=== PATIENT | male | born 1970 | race Caucasian/White ===

== ENCOUNTER → 2017-01-18 | Outpatient (CLI) | payer OTHER ==
[~2017-01-18] MED LIST: METHACHOLINE KIT (J7674) INH ONE
--- NOTE | 2017-01-18 09:33 | PFTRPT ---
Tech: Jazlyn BELTRAN RRT Age: 46 Sex: Male Race: Height: 68.75 Inches Weight: 262.00 Lbs BSA: 2.31 Diagnosis: R06.02 METHACHOLINE CHALLENGE REPORT: ORDERING PROVIDER: Dwaine Amaya MD DATE OF SERVICE:01/18/17 INTERPRETATION: The study was of excellent technical quality. Under protocol, methacholine was administered. At a dose of 10 mg (63.875 CDUs), a 24% decline in the FEV1 was noted. The PC20 of 7.10 just does meet criteria for a positive study. Flow rates did return to baseline post bronchodilator administration. IMPRESSION: Positive methacholine challenge study. MTDD
== END ==
LOC: M CARPUL 08:48
PROVIDERS: ATTEND Internal Medicine Pulmonary Disease
DX: R06.02 Shortness of breath (principal)

== ENCOUNTER → 2018-06-24 | Outpatient (CLI) | payer OTHER | LOC: M RAD 15:50 | DX: J32.4 Chronic pansinusitis (principal) | CPT/HCPCS: 70486 ==

== ENCOUNTER 2022-04-22 08:22 | Day surgery (SDC) | payer OTHER ==
[~2022-04-22] VITALS: Ht 180.3 cm; Wt 132.9 kg
[~2022-04-22 08:22] MED LIST changes: +ATOR1TAB21 PO; +FLUO40CA PO; +GLIP5TAB20 PO; +LOSA50TA28 PO; -METHACHOLINE KIT (J7674) INH ONE; +OMEP-173 PO; +OXYC1TAB23 PO
[2022-04-22] MEDS ORDERED: LR 1,000 ML IV SCH ×3 (09:25→16:00)
[2022-04-22] MEDS ORDERED: ROPIvacaine 0.5% 30ML INJECTION (J2795 PER 1MG) PN ONE (09:45)
[2022-04-22] MEDS ORDERED: LIDOCAINE 1% SDV 5ML VIAL PN ONE (09:45)
[2022-04-22] MEDS ORDERED: ONDANSETRON 4MG 2ML VIAL IV PRN ×2 (09:45→16:00)
[2022-04-22] MEDS ORDERED: oxyCODONE 5MG TAB PO PRN ×2 (09:45→17:15)
[2022-04-22] MEDS ORDERED: fentaNYL 100 MCG/2 ML INJECTION IV PRN ×2 (09:45)
[2022-04-22] MEDS ORDERED: dexameTHASONE 10MG/1ML VIAL PRES.FREE (J1100 PER 1MG) PN ONE (09:45)
[2022-04-22] MEDS: MIDAZOLAM INJ 2MG/2ML VIAL (J2250 PER 1MG) IV PRN ×2 (10:15→10:16)
[2022-04-22] MEDS ORDERED: ceFAZolin SOD 2 GM in IV 1 EA IV ONE (10:25)
[2022-04-22] MEDS ORDERED: ceFAZolin SOD 1 GM in D5W MINI-BAG PLUS 50 ML IV ONE (10:25)
[2022-04-22] MEDS ORDERED: BUPIVACAINE HCL 0.25% 30ML VIAL As Ordered ONE (12:29)
[2022-04-22] MEDS ORDERED: BACITRACIN OINTMENT 30GM TUBE ONE (12:30)
[2022-04-22] MEDS ORDERED: BUPIVACAINE HCL 0.25% 30ML VIAL ONE (12:30)
[2022-04-22] MEDS ORDERED: BACITRACIN OINTMENT 30GM TUBE As Ordered ONE (12:30)
[2022-04-22] MEDS ORDERED: ONDANSETRON 4MG 2ML VIAL As Ordered ONE (13:14)
[2022-04-22] MEDS ORDERED: MIDAZOLAM INJ 2MG/2ML VIAL (J2250 PER 1MG) As Ordered ONE (13:14)
[2022-04-22] MEDS ORDERED: fentaNYL 250 MCG/5 ML INJECTION As Ordered ONE (13:14)
[2022-04-22] MEDS ORDERED: ROCURONIUM BROMIDE 50 MG/5 ML VIAL As Ordered ONE ×2 (13:14→13:52)
[2022-04-22] MEDS ORDERED: LABETALOL 100MG/20ML VIAL As Ordered ONE (13:14)
[2022-04-22] MEDS ORDERED: propofoL 200 MG/20 ML VIAL As Ordered ONE ×2 (13:14→13:15)
[2022-04-22] MEDS ORDERED: LIDOCAINE 2% 100MG/5ML SDV (FOR ANES.) As Ordered ONE (13:14)
[2022-04-22] MEDS ORDERED: dexameTHASONE 4 MG/ML 1ML VIAL (J1100 PER 1MG) As Ordered ONE (13:14)
[2022-04-22] MEDS ORDERED: PHENYLephrine 500MCG 5ML (100MCG/ML) SYRINGE As Ordered ONE (13:20)
[2022-04-22] MEDS ORDERED: ePHEDrine SULFATE 25 MG/5 ML(5MG/ML) SYRINGE As Ordered ONE (13:21)
[2022-04-22] MEDS ORDERED: ACETAMINOPHEN 1000MG 100ML IV BTL (OFIRMEV) (J0131 PER 10MG) As Ordered ONE (14:35)
[2022-04-22] MEDS ORDERED: SUGAMMADEX SODIUM 500 MG/5 ML VIAL (BRIDION) As Ordered ONE (15:44)
[2022-04-22] MEDS ORDERED: PERC5TAB12 PO (16:20)
[2022-04-22] MEDS: fentaNYL 100 MCG/2 ML INJECTION IV PRN ×4 (16:32→16:48)
[2022-04-22] MEDS: oxyCODONE 5MG TAB PO PRN ×2 (16:32→17:03)
[2022-04-22] MEDS ORDERED: KETOROLAC 30 MG/ML 1ML VIAL As Ordered ONE (16:41)
[2022-04-22] MEDS ORDERED: KETOROLAC 30 MG/ML 1ML VIAL IV ONE (16:45)
[2022-04-22] MEDS: MORPHINE 2 MG/ML 1ML VIAL IV PRN ×5 (16:55→17:24)
[2022-04-22] MEDS ORDERED: ACETAMINOPHEN TAB 650MG DOSE (2X325MG) PO PRN (17:15)
[2022-04-22] MEDS ORDERED: MORPHINE 4 MG/ML 1ML VIAL/SYRINGE IV PRN (17:15)
[2022-04-22] MEDS ORDERED: HYDROmorphone 2 MG TAB PO PRN ×2 (17:15→17:20)
[2022-04-22] MEDS ORDERED: FUROSEMIDE 40MG/4ML VIAL (J1940) IV ONE (18:10)
[2022-04-22 18:55] VITALS: BP 168/108
[2022-04-22 19:00] LABS: HEMATOCRIT 41.1 % (42.0-52.0); HEMOGLOBIN 13.6 g/dl (13.5-17.5); MEAN CORPUSCULAR HEMOGLOBIN 26.9 pg (27.0-33.0); MEAN CORPUSCULAR HGB CONC 33.1 g/dl (32.0-36.5); MEAN CORPUSCULAR VOLUME 81.4 fl (80.0-96.0); PLATELET COUNT, AUTOMATED 309 10^3/uL (150-450); RED BLOOD COUNT 5.05 10^6/uL (4.30-6.10); WHITE BLOOD COUNT 9.9 10^3/uL (4.0-10.0)
[2022-04-22 19:25] VITALS: BP 170/90
[2022-04-22 19:37] LABS: BLOOD UREA NITROGEN 19 MG/DL (7-18); CALCIUM LEVEL 9.1 MG/DL (8.5-10.1); CARBON DIOXIDE LEVEL 25 MEQ/L (21-32); CHLORIDE LEVEL 100 MEQ/L (98-107); CREATININE FOR GFR 1.17 MG/DL (0.70-1.30); GLOMERULAR FILTRATION RATE > 60.0 (>56); GLUCOSE, FASTING 217 MG/DL (70-100); NT-PRO BNP 57 PG/ML (<125); POTASSIUM SERUM 4.1 MEQ/L (3.5-5.1); SODIUM LEVEL 135 MEQ/L (136-145)
[2022-04-22] MEDS ORDERED: LABETALOL 100MG/20ML VIAL IV ONE (19:40)
[2022-04-22] MEDS: ceFAZolin SOD 1 GM in D5W MINI-BAG PLUS 50 ML IV SCH (20:36)
[2022-04-22] MEDS ORDERED: PILL CUTTER 1 EACH XX PRN (20:40)
[2022-04-22 22:25] VITALS: BP 167/95
[2022-04-22] MEDS: KETOROLAC 30 MG/ML 1ML VIAL IV SCH (22:51)
[2022-04-22 23:58] VITALS: BP 189/98
[2022-04-23 00:09] VITALS: BP 189/98
[2022-04-23 03:25] VITALS: BP 160/70
[2022-04-23] MEDS: ceFAZolin SOD 1 GM in D5W MINI-BAG PLUS 50 ML IV SCH (05:08)
[2022-04-23] MEDS: KETOROLAC 30 MG/ML 1ML VIAL IV SCH (05:09)
[2022-04-23 05:18] LABS: HEMATOCRIT 37.3 % (42.0-52.0); HEMOGLOBIN 12.3 g/dl (13.5-17.5); MEAN CORPUSCULAR HEMOGLOBIN 26.9 pg (27.0-33.0); MEAN CORPUSCULAR VOLUME 81.6 fl (80.0-96.0); PLATELET COUNT, AUTOMATED 325 10^3/uL (150-450); RED BLOOD COUNT 4.57 10^6/uL (4.30-6.10); WHITE BLOOD COUNT 12.6 10^3/uL (4.0-10.0)
[2022-04-23 05:33] LABS: HEMOGLOBIN A1c 7.2 %
[2022-04-23 06:00] LABS: ALBUMIN 3.6 GM/DL (3.2-5.2); ALT/SGPT 59 U/L (12-78); BILIRUBIN,TOTAL 0.4 MG/DL (0.2-1.0); BLOOD UREA NITROGEN 22 MG/DL (7-18); CALCIUM LEVEL 8.9 MG/DL (8.5-10.1); CARBON DIOXIDE LEVEL 25 MEQ/L (21-32); CHLORIDE LEVEL 100 MEQ/L (98-107); CHOLESTEROL LEVEL 159 MG/DL (<200); CHOLESTEROL RISK RATIO 4.968 (<5); CREATININE FOR GFR 1.09 MG/DL (0.70-1.30); GLOMERULAR FILTRATION RATE > 60.0 (>56); GLUCOSE, FASTING 207 MG/DL (70-100); HDL CHOLESTEROL 32 MG/DL (>40); LDL CHOLESTEROL 92 MG/DL (<100); NON-HDL-C 127 MG/DL; POTASSIUM SERUM 4.1 MEQ/L (3.5-5.1); SODIUM LEVEL 134 MEQ/L (136-145); TOTAL PROTEIN 6.9 GM/DL (6.4-8.2); TRIGLYCERIDES LEVEL 174 MG/DL (<150)
[2022-04-23 08:00] VITALS: BP 137/87
[2022-04-23] MEDS ORDERED: FUROSEMIDE 40MG/4ML VIAL (J1940) IV ONE (08:00)
[2022-04-23] MEDS ORDERED: ATOR1TAB21 PO (08:25)
[2022-04-23] MEDS ORDERED: LOSA50TA28 PO (08:26)
[2022-04-23] MEDS ORDERED: GLIP5TAB20 PO (08:26)
[2022-04-23] MEDS ORDERED: OMEP-173 PO (08:26)
[2022-04-23] MEDS ORDERED: ANOR1AER PO (08:26)
[2022-04-23] MEDS ORDERED: HOME MED LIST COMPLETE! XX SCH (08:30)
[2022-04-23] MEDS ORDERED: LOSARTAN 50MG TABLET PO SCH (09:00)
[2022-04-23] MEDS ORDERED: IBUPROFEN 600MG TAB PO PRN (23:00)
== END 2022-04-23 10:05 | disposition home or self-care (01) ==
LOC: M SDC 08:22 → M PCU 18:05 → M SDC 04-23 10:05
PROVIDERS: ATTEND Orthopaedic Surgery Hand Surgery
DX: S42.401A Unspecified fracture of lower end of right humerus, initial encounter for closed fracture (principal); S53.442A Ulnar collateral ligament sprain of left elbow, initial encounter; V58.4XXA Person boarding or alighting a pick-up truck or van injured in noncollision transport accident, initial encounter; E11.9 Type 2 diabetes mellitus without complications; I10 Essential (primary) hypertension; J34.2 Deviated nasal septum; E78.00 Pure hypercholesterolemia, unspecified; K21.9 Gastro-esophageal reflux disease without esophagitis; R60.0 Localized edema; J32.4 Chronic pansinusitis; G43.919 Migraine, unspecified, intractable, without status migrainosus; H90.2 Conductive hearing loss, unspecified; G47.33 Obstructive sleep apnea (adult) (pediatric); Z91.19 Patient's noncompliance with other medical treatment and regimen; M54.50 Low back pain, unspecified; F43.10 Post-traumatic stress disorder, unspecified; J45.909 Unspecified asthma, uncomplicated; J44.9 Chronic obstructive pulmonary disease, unspecified; E66.01 Morbid (severe) obesity due to excess calories; Z68.41 Body mass index [BMI] 40.0-44.9, adult; Z87.891 Personal history of nicotine dependence; Z79.899 Other long term (current) drug therapy; Z79.51 Long term (current) use of inhaled steroids; Z88.8 Allergy status to other drugs, medicaments and biological substances
CPT/HCPCS: 20692; 24343; 24366; 24586; 36415; 71045; 76000; 80048; 80053; 80061; 83036; 83880; 85027; 85379; 93970; 96365; 96366; 96375; 96376; 97161; C1713; J0131; J0690; J1100; J1885; J2250; J2270; J2370; J2405; J3010

== ENCOUNTER → 2022-05-01 | Outpatient (CLI) | payer OTHER ==
[~2022-05-01] MED LIST changes: +ANOR1AER PO; +PERC5TAB12 PO
== END ==
LOC: M SOG 13:36
PROVIDERS: ATTEND Physician Assistant
DX: S52.121A Displaced fracture of head of right radius, initial encounter for closed fracture (principal); W18.30XA Fall on same level, unspecified, initial encounter; Y92.009 Unspecified place in unspecified non-institutional (private) residence as the place of occurrence of the external cause

== ENCOUNTER → 2022-05-11 | Outpatient (CLI) | payer OTHER | LOC: M SOG 08:16 | PROVIDERS: ATTEND Physician Assistant | DX: Z47.89 Encounter for other orthopedic aftercare (principal) ==

== ENCOUNTER → 2022-05-25 | Outpatient (CLI) | payer OTHER | LOC: M SOG 13:44 | PROVIDERS: ATTEND Orthopaedic Surgery Hand Surgery | DX: Z47.89 Encounter for other orthopedic aftercare (principal) ==

== ENCOUNTER → 2022-06-15 | Outpatient (CLI) | payer OTHER | LOC: M SOG 09:18 | PROVIDERS: ATTEND Orthopaedic Surgery Hand Surgery | DX: Z47.89 Encounter for other orthopedic aftercare (principal) ==

== ENCOUNTER → 2022-07-16 | Outpatient (CLI) | payer OTHER | LOC: M SOG 14:36 | PROVIDERS: ATTEND Orthopaedic Surgery Hand Surgery | DX: M25.621 Stiffness of right elbow, not elsewhere classified (principal) ==

== ENCOUNTER → 2022-08-20 | Outpatient (CLI) | payer OTHER | LOC: M SOG 09:47 | PROVIDERS: ATTEND Physician Assistant | DX: M25.521 Pain in right elbow (principal) ==

== ENCOUNTER → 2022-10-22 | Outpatient (CLI) | payer OTHER | LOC: M SOG 14:36 | PROVIDERS: ATTEND Physician Assistant | DX: M25.522 Pain in left elbow (principal) ==

== ENCOUNTER → 2022-11-02 | Outpatient (CLI) | payer OTHER ==
[~2022-11-02] MED LIST changes: +ASPI-527 PO; +CELE100C PO
== END ==
LOC: M LABSMTC 09:45
PROVIDERS: ATTEND Anesthesiology
DX: Z01.818 Encounter for other preprocedural examination (principal); Z11.52 Encounter for screening for COVID-19

== ENCOUNTER 2022-11-06 06:59 | Day surgery (SDC) | payer OTHER ==
[~2022-11-06] VITALS: Ht 180.3 cm; Wt 123.0 kg
[2022-11-06] MEDS ORDERED: LR 1,000 ML IV SCH (07:05)
[2022-11-06] MEDS ORDERED: METO50TA7 PO (07:28)
[2022-11-06] MEDS ORDERED: ALOG25TA PO (07:28)
[2022-11-06] MEDS ORDERED: BACITRACIN OINTMENT 30GM TUBE As Ordered ONE (08:19)
[2022-11-06] MEDS ORDERED: BUPIVACAINE HCL 0.25% 30ML VIAL As Ordered ONE (08:20)
[2022-11-06] MEDS ORDERED: MIDAZOLAM INJ 2MG/2ML VIAL As Ordered ONE (08:22)
[2022-11-06] MEDS ORDERED: fentaNYL 100 MCG/2 ML INJECTION As Ordered ONE (08:22)
[2022-11-06] MEDS ORDERED: ONDANSETRON 4MG 2ML VIAL As Ordered ONE (08:23)
[2022-11-06] MEDS ORDERED: LIDOCAINE 2% 100MG/5ML SDV (FOR ANES.) As Ordered ONE (08:23)
[2022-11-06] MEDS ORDERED: KETOROLAC 60MG 2ML VIAL As Ordered ONE (08:23)
[2022-11-06] MEDS ORDERED: propofoL 200 MG/20 ML VIAL As Ordered ONE (08:23)
[2022-11-06] MEDS ORDERED: ACETAMINOPHEN 1000MG 100ML IV BAG As Ordered ONE (08:23)
[2022-11-06] MEDS ORDERED: LIDOCAINE W/EPINEPHRINE 1% 20ML VIAL As Ordered ONE (08:25)
[2022-11-06] MEDS ORDERED: ceFAZolin 1GM VIAL As Ordered ONE (08:37)
[2022-11-06] MEDS ORDERED: ceFAZolin 2 GM/D5W 50 ML IV BAG As Ordered ONE (08:38)
[2022-11-06] MEDS ORDERED: VASOPRESSIN INJ 20UNITS/ML 1ML VIAL As Ordered ONE (08:59)
[2022-11-06] MEDS ORDERED: oxyCODONE 5MG TAB PO PRN (10:00)
[2022-11-06] MEDS ORDERED: fentaNYL 100 MCG/2 ML INJECTION IV PRN (10:00)
[2022-11-06] MEDS ORDERED: MORPHINE 2 MG/ML 1ML VIAL IV PRN (10:00)
[2022-11-06] MEDS ORDERED: ONDANSETRON 4MG 2ML VIAL IV PRN (10:00)
[2022-11-06] MEDS ORDERED: PERC5TAB12 PO (10:04)
[2022-11-06 11:28] VITALS: BP 110/64
== END 2022-11-06 11:34 | disposition home or self-care (01) ==
LOC: M SDC 06:59
PROVIDERS: ATTEND Orthopaedic Surgery Hand Surgery
DX: T84.192A Other mechanical complication of internal fixation device of bone of right forearm, initial encounter (principal); M25.521 Pain in right elbow; J45.909 Unspecified asthma, uncomplicated; Z87.891 Personal history of nicotine dependence; Z79.82 Long term (current) use of aspirin; Z79.899 Other long term (current) drug therapy; I25.10 Atherosclerotic heart disease of native coronary artery without angina pectoris; I25.2 Old myocardial infarction; I10 Essential (primary) hypertension; E11.9 Type 2 diabetes mellitus without complications
CPT/HCPCS: 20680; 76000; J0131; J0690; J1100; J1885; J2250; J2405; J3010; S0020

== ENCOUNTER → 2022-11-16 | Outpatient (CLI) | payer OTHER ==
[~2022-11-16] MED LIST changes: +ALOG25TA PO; +METO50TA7 PO
== END ==
LOC: M SOG 09:05
PROVIDERS: ATTEND Physician Assistant
DX: S52.121A Displaced fracture of head of right radius, initial encounter for closed fracture (principal); W18.30XA Fall on same level, unspecified, initial encounter; Y92.009 Unspecified place in unspecified non-institutional (private) residence as the place of occurrence of the external cause

== ENCOUNTER → 2023-02-24 | Outpatient (REF) | LOC: M PLAIMG 09:26 | PROVIDERS: ATTEND Internal Medicine | DX: M17.12 Unilateral primary osteoarthritis, left knee (principal); M54.50 Low back pain, unspecified; M76.52 Patellar tendinitis, left knee ==

== ENCOUNTER → 2024-01-05 | Outpatient (REF) | payer OTHER | LOC: M SFHCDERM 18:08 | PROVIDERS: ATTEND Physician Assistant | DX: L57.0 Actinic keratosis (principal) ==

== ENCOUNTER → 2025-03-29 | Outpatient (CLI) | payer OTHER ==
[~2025-03-29] MED LIST changes: +GLIP-318 PO; -GLIP5TAB20 PO
== END ==
LOC: M SOG 06:56
PROVIDERS: ATTEND Orthopaedic Surgery Hand Surgery
DX: S52.121D Displaced fracture of head of right radius, subsequent encounter for closed fracture with routine healing (principal); Z96.621 Presence of right artificial elbow joint

== ENCOUNTER → 2025-06-29 | Outpatient (CLI) | payer OTHER | LOC: M SOG 13:13 | PROVIDERS: ATTEND Orthopaedic Surgery Hand Surgery | DX: M25.531 Pain in right wrist (principal) ==